=== PATIENT | female | born 1935 | race Caucasian/White ===

== ENCOUNTER 2025-03-12 11:28 | Inpatient (IN) | payer MEDICARE ==
[~2025-03-12] VITALS: Ht 152.4 cm; Wt 53.1 kg
[2025-03-12 12:05] LABS: PLATELET COUNT (AUTO) 191 K/uL (150-450); RED BLOOD CELL COUNT(AUTO) 2.66 MIL/uL (4.0-5.2); RED CELL DISTRIBUTION WIDTH 16.7 % (11.5-15.0); WHITE BLOOD COUNT (AUTO) 6.2 K/uL (4.3-11.0)
[2025-03-12 12:16] LABS: CALCIUM, SERUM 8.2 mg/dL (8.5-10.1); CREATININE 0.9 mg/dL (0.6-1.3); SODIUM SERUM 136 mmol/L (136-145); UREA NITROGEN, BLOOD 19 mg/dL (7-18)
[2025-03-12 12:27] LABS: LACTIC ACID 2.3 mmol/L (0.4-2.0)
[2025-03-12 12:28] LABS: ASPARTATE AMINOTRANSFERASE 29 U/L (15-37); NT-PRO BNP 3089 pg/mL (0-125); TOTAL PROTEIN, SERUM 6.4 g/dL (6.4-8.2)
[2025-03-12 12:30] LABS: INR 1.07 (0.91-1.10)
[2025-03-12] MEDS ORDERED: IOHEXOL-350 100 ML VIAL IV ONE (13:23)
[2025-03-12] MEDS ORDERED: IV NS 0.9% 250 ML IV ONE (13:23)
[2025-03-12] MEDS ORDERED: FUROSEMIDE 20 MG/2 ML VIAL ONE (14:05)
[2025-03-12] MEDS: FUROSEMIDE 20 MG/2 ML VIAL IV ONE (14:16)
[2025-03-12] MEDS: PIPERACILLIN /TAZOBACTAM 3.375 G in IV D5W 50 ML IV ONE (14:21)
[2025-03-12] MEDS ORDERED: DOSING PER PHARMACY-ZOSYN IV 1 EA EA XX PRN (14:30)
[2025-03-12] MEDS ORDERED: ENOXAPARIN SODIUM 30 MG/0.3 ML DISP.SYRIN SQ SCH (14:30)
[2025-03-12] MEDS ORDERED: MAG HYDROX/AL HYDROX/SIMETH 30 ML UDC PO PRN (14:30)
[2025-03-12] MEDS ORDERED: MAGNESIUM HYDROXIDE 30 ML UDC PO PRN (14:30)
[2025-03-12] MEDS ORDERED: Z GUARD REMEDY 4 OZ OINT TP PRN (14:30)
[2025-03-12] MEDS ORDERED: ONDANSETRON HCL/PF 4 MG/2 ML VIAL IVP PRN (14:30)
[2025-03-12] MEDS ORDERED: ZOLPIDEM TARTRATE 5 MG TABLET PO PRN (14:30)
[2025-03-12 16:30] VITALS: BP 120/70; TEMP 97.9; O2SAT 97
[2025-03-12 20:00] VITALS: BP 119/70; TEMP 97.3; O2SAT 97
[2025-03-12] MEDS: ZOSYN IVPB 3.375 G in IV D5W 50ml IV SCH (20:19)
[2025-03-12] MEDS: ENOXAPARIN SODIUM 30 MG/0.3 ML DISP.SYRIN SQ SCH (21:26)
[2025-03-13] VITALS: BP 115/75; TEMP 97.9; O2SAT 100
[2025-03-13] MEDS: ACETAMINOPHEN 325 MG TABLET PO PRN (03:48)
[2025-03-13 04:00] VITALS: BP 138/71; TEMP 98.1; O2SAT 98
[2025-03-13 07:05] LABS: PLATELET COUNT (AUTO) 159 K/uL (150-450); RED BLOOD CELL COUNT(AUTO) 2.28 MIL/uL (4.0-5.2); RED CELL DISTRIBUTION WIDTH 16.0 % (11.5-15.0); WHITE BLOOD COUNT (AUTO) 5.9 K/uL (4.3-11.0)
[2025-03-13 07:06] LABS: CALCIUM, SERUM 7.8 mg/dL (8.5-10.1); CREATININE 1.0 mg/dL (0.6-1.3); PHOSPHORUS 3.4 mg/dL (2.5-4.9); SODIUM SERUM 137.0 mmol/L (136-145); UREA NITROGEN, BLOOD 20.0 mg/dL (7-18)
[2025-03-13 08:00] VITALS: BP 133/74; TEMP 97.7; O2SAT 99
[2025-03-13] MEDS: FUROSEMIDE 40 MG/4 ML VIAL IV SCH (09:44)
[2025-03-13] MEDS: PANTOPRAZOLE 40 MG TABLET.DR PO SCH (09:44)
[2025-03-13] MEDS: THERAHONEY GEL 1.5 OZ TUBE TP SCH (10:37)
[2025-03-13] MEDS: DAKINS QUARTER STRENGTH (0.125%) 480 ML BOTTLE TOP SCH (10:37)
[2025-03-13 11:30] VITALS: BP 139/85; TEMP 99.1; O2SAT 99
[2025-03-13] MEDS: AMIODARONE HCL 200 MG TABLET PO SCH (12:12)
[2025-03-13] MEDS: APIXABAN 2.5 MG TABLET PO SCH (12:13)
[2025-03-13] MEDS: PIPERACILLIN /TAZOBACTAM 3.375 G in IV D5W 100 ML IV SCH (14:01)
[2025-03-13] MEDS ORDERED: SENN8.6T19 PO (15:55)
[2025-03-13] MEDS ORDERED: DOCU100T2 PO (15:55)
[2025-03-13] MEDS ORDERED: AMIN30LI66 PO (15:55)
[2025-03-13] MEDS ORDERED: METH5TAB6 PO (15:55)
[2025-03-13] MEDS ORDERED: ACET325T53 PO (15:55)
[2025-03-13] MEDS ORDERED: FURO-145 PO (15:55)
[2025-03-13] MEDS ORDERED: ATOR40TA PO (15:55)
[2025-03-13] MEDS ORDERED: MAGN400O21 PO (15:55)
[2025-03-13] MEDS ORDERED: ONDA-97 PO (15:55)
[2025-03-13] MEDS ORDERED: MEGE400O6 PO (15:55)
[2025-03-13] MEDS ORDERED: CALC-494 PO (15:55)
[2025-03-13] MEDS ORDERED: CRAN400T3 PO (15:55)
[2025-03-13] MEDS ORDERED: POLY17PO4 PO (15:55)
[2025-03-13] MEDS ORDERED: MULT-213 PO (15:55)
[2025-03-13] MEDS ORDERED: ASCO-352 PO (15:55)
[2025-03-13] MEDS ORDERED: CARB1TAB21 PO (15:55)
[2025-03-13] MEDS ORDERED: ACET-73 PO (15:55)
[2025-03-13] MEDS ORDERED: ZINC50TA69 PO (15:55)
[2025-03-13] MEDS ORDERED: OXYC5TAB3 PO (15:55)
[2025-03-13] MEDS ORDERED: BISA10SU61 RC (15:55)
[2025-03-13] MEDS ORDERED: NIFE30TA91 PO (15:55)
[2025-03-13 16:00] VITALS: BP 117/70; TEMP 97.9; O2SAT 100
[2025-03-13 16:29] LABS: LACTIC ACID 2.4 mmol/L (0.4-2.0)
[2025-03-13 20:00] VITALS: BP 124/71; TEMP 98.1; O2SAT 97
[2025-03-14 04:00] VITALS: BP 122/67; TEMP 97.7; O2SAT 100
[2025-03-14 07:20] LABS: PLATELET COUNT (AUTO) 138 K/uL (150-450); RED BLOOD CELL COUNT(AUTO) 2.09 MIL/uL (4.0-5.2); RED CELL DISTRIBUTION WIDTH 15.9 % (11.5-15.0); WHITE BLOOD COUNT (AUTO) 6.5 K/uL (4.3-11.0)
[2025-03-14 07:37] LABS: CALCIUM, SERUM 7.5 mg/dL (8.5-10.1); CREATININE 1.0 mg/dL (0.6-1.3); UREA NITROGEN, BLOOD 20.0 mg/dL (7-18)
[2025-03-14 07:55] LABS: SODIUM SERUM 139.0 mmol/L (136-145)
[2025-03-14 08:00] VITALS: BP 111/72; TEMP 97.3; O2SAT 99
[2025-03-14] MEDS: POTASSIUM CHLORIDE 20 MEQ TAB.PRT.SR PO SCH (08:57)
[2025-03-14] MEDS: FUROSEMIDE 40 MG/4 ML VIAL IV SCH (08:57)
[2025-03-14 12:00] VITALS: BP 118/69; TEMP 97.3; O2SAT 100
[2025-03-14 17:00] VITALS: BP 99/68; TEMP 98.4; O2SAT 100
[2025-03-14] MEDS: ENSURE ENLIVE 237 ML LIQUID (VANILLA) PO SCH (17:23)
[2025-03-14] MEDS: PROSOURCE / PROSTAT (PYXIS) 30 ML UDC PO SCH (17:24)
[2025-03-14 20:00] VITALS: BP 119/60; TEMP 97.5; O2SAT 99
[2025-03-15] VITALS: BP 122/55; TEMP 97.9; O2SAT 100
[2025-03-15 04:00] VITALS: BP 113/59; TEMP 97.9; O2SAT 99
[2025-03-15 07:30] LABS: PLATELET COUNT (AUTO) 164 K/uL (150-450); RED BLOOD CELL COUNT(AUTO) 2.39 MIL/uL (4.0-5.2); RED CELL DISTRIBUTION WIDTH 16.0 % (11.5-15.0); WHITE BLOOD COUNT (AUTO) 6.1 K/uL (4.3-11.0)
[2025-03-15 08:00] VITALS: BP 121/66; TEMP 98.8; O2SAT 98
[2025-03-15 08:22] LABS: ASPARTATE AMINOTRANSFERASE 26.0 U/L (15-37); CALCIUM, SERUM 7.4 mg/dL (8.5-10.1); CREATININE 1.0 mg/dL (0.6-1.3); PHOSPHORUS 2.7 mg/dL (2.5-4.9); SODIUM SERUM 138.0 mmol/L (136-145); TOTAL PROTEIN, SERUM 5.5 g/dL (6.4-8.2); UREA NITROGEN, BLOOD 22.0 mg/dL (7-18)
[2025-03-15] MEDS ORDERED: AMIO200T7 PO (09:37)
[2025-03-15] MEDS: POTASSIUM CHLORIDE 20 MEQ TAB.PRT.SR PO ONE (09:56)
[2025-03-15 11:30] VITALS: BP 119/77; TEMP 99.3; O2SAT 98
[2025-03-15] MEDS: SILVER NITRATE APPLICATOR 1 EA BOX TP ONE (15:27)
[2025-03-15 16:00] VITALS: BP 112/56; TEMP 97.5; O2SAT 100
[2025-03-15] MEDS: ENOXAPARIN SODIUM 30 MG/0.3 ML DISP.SYRIN SQ SCH (17:00)
[2025-03-15 21:59] VITALS: BP 109/63; TEMP 97.5; O2SAT 100
[2025-03-16 06:24] LABS: CALCIUM, SERUM 7.7 mg/dL (8.5-10.1); CREATININE 0.9 mg/dL (0.6-1.3); SODIUM SERUM 138.0 mmol/L (136-145); UREA NITROGEN, BLOOD 24.0 mg/dL (7-18)
[2025-03-16 07:00] VITALS: BP 131/71; TEMP 97.7; O2SAT 98
[2025-03-16 08:24] VITALS: BP 132/71; TEMP 97.7; O2SAT 95
[2025-03-16 16:00] VITALS: BP 140/79; TEMP 98.1; O2SAT 99
[2025-03-16] MEDS: SILVER NITRATE APPLICATOR 1 EA BOX TP ONE (16:19)
[2025-03-16 16:23] VITALS: TEMP 98.1; O2SAT 99
[2025-03-16] MEDS: LIDOCAINE 1%-EPI 1:100,000 20 ML VIAL IJ STA (16:31)
[2025-03-16 20:00] VITALS: BP 106/68; TEMP 97.7; O2SAT 99
[2025-03-17] VITALS (7 sets, daily range): BP systolic 114–142; BP diastolic 71–86; TEMP 97.3–98.6; O2SAT 96–98
[2025-03-17 07:23] LABS: PLATELET COUNT (AUTO) 147 K/uL (150-450); RED CELL DISTRIBUTION WIDTH 15.7 % (11.5-15.0); WHITE BLOOD COUNT (AUTO) 6.3 K/uL (4.3-11.0)
[2025-03-17 07:48] LABS: CALCIUM, SERUM 7.5 mg/dL (8.5-10.1); CREATININE 0.9 mg/dL (0.6-1.3); SODIUM SERUM 139.0 mmol/L (136-145); UREA NITROGEN, BLOOD 29.0 mg/dL (7-18)
[2025-03-17 07:52] LABS: RED BLOOD CELL COUNT(AUTO) 1.93 MIL/uL (4.0-5.2)
[2025-03-18 07:00] VITALS: BP 136/56; TEMP 97.7; O2SAT 98
[2025-03-18] MEDS: GLUCERNA SHAKE 237 ML CAN PO SCH (08:42)
[2025-03-18 15:00] VITALS: BP 125/62; TEMP 99; O2SAT 95
[2025-03-18 20:00] VITALS: BP 111/46; TEMP 98.2; O2SAT 98
[2025-03-19 09:17] VITALS: BP 142/73; TEMP 97.7; O2SAT 100
[2025-03-19 18:53] VITALS: BP 100/56
== END 2025-03-19 20:05 | DRG 264 ==
LOC: ER 11:38 → TELE 16:35 → MED 03-15 11:46 → UNDODISIN 03-19 14:00 → MED 03-19 15:05
PROVIDERS: ADMIT Student in an Organized Health Care Education/Training Program; ATTEND Internal Medicine
PROC: 0KBP0ZZ Excision of Left Hip Muscle, Open Approach (ICD-10-PCS; principal; 2025-03-16)
PROC: 0KBN0ZZ Excision of Right Hip Muscle, Open Approach (ICD-10-PCS; 2025-03-16)
PROC: 0JBM0ZZ Excision of Left Upper Leg Subcutaneous Tissue and Fascia, Open Approach (ICD-10-PCS; 2025-03-16)
PROC: 0JBL0ZZ Excision of Right Upper Leg Subcutaneous Tissue and Fascia, Open Approach (ICD-10-PCS; 2025-03-16)
DX: I50.33 Acute on chronic diastolic (congestive) heart failure (principal); L89.154 Pressure ulcer of sacral region, stage 4; L89.223 Pressure ulcer of left hip, stage 3; L89.213 Pressure ulcer of right hip, stage 3; E44.0 Moderate protein-calorie malnutrition; E87.20 Acidosis, unspecified; J90 Pleural effusion, not elsewhere classified; E88.09 Other disorders of plasma-protein metabolism, not elsewhere classified; D64.9 Anemia, unspecified; E11.22 Type 2 diabetes mellitus with diabetic chronic kidney disease; I48.91 Unspecified atrial fibrillation; K74.60 Unspecified cirrhosis of liver; N18.9 Chronic kidney disease, unspecified; F03.90 Unspecified dementia, unspecified severity, without behavioral disturbance, psychotic disturbance, mood disturbance, and anxiety; I05.9 Rheumatic mitral valve disease, unspecified; J98.11 Atelectasis; E11.9 Type 2 diabetes mellitus without complications; E87.6 Hypokalemia; Z86.73 Personal history of transient ischemic attack (TIA), and cerebral infarction without residual deficits; I25.10 Atherosclerotic heart disease of native coronary artery without angina pectoris; Z20.822 Contact with and (suspected) exposure to COVID-19; Z91.81 History of falling; M19.90 Unspecified osteoarthritis, unspecified site; S00.12XD Contusion of left eyelid and periocular area, subsequent encounter; S00.11XD Contusion of right eyelid and periocular area, subsequent encounter; X58.XXXD Exposure to other specified factors, subsequent encounter; I25.2 Old myocardial infarction
CPT/HCPCS: 36415; 70450-TC; 71045-TC; 80048-TC; 80053-TC; 80076-TC; 83605-TC; 83735-TC; 83880; 84100-TC; 84484-TC; 85025-TC; 85378-TC; 85730-TC; 87040-TC; 87070-TC; 87081-TC; 87186-TC; 93307-TC; A4223; A6253; A6403; G0378; J1650; J1938; J2543; J3490; J7050; J7060; Q9967